=== PATIENT | female | born 1995 | race Caucasian/White ===

== ENCOUNTER 2020-11-21 09:37 | Emergency (ER) | payer OTHER, MEDICAID ==
[~2020-11-21] VITALS: Ht 167.6 cm; Wt 106.6 kg
[2020-11-21 09:56] VITALS: BP 167/97
[2020-11-21] MEDS ORDERED: HYDROCODON-ACE1 EAC7 PO (10:00)
[2020-11-21] MEDS ORDERED: FLEXERIL PO (10:00)
[2020-11-21] MEDS ORDERED: HYDROCODON-ACE1 EAC8 PO (10:56)
== END 2020-11-21 10:29 | disposition home or self-care (01) ==
LOC: M.ERS 09:37
DX: M54.5 Low back pain (principal)